=== PATIENT | female | born 1990 | race American Indian/Alaskan Native ===

== ENCOUNTER 2019-09-30 05:38 | Inpatient (IN) | payer OTHER ==
[2019-09-30] MEDS ORDERED: LIDOCAINE (2%) 20 MG/1 ML VIAL 20 ML MDV INFILTRATI ONE (06:46)
[2019-09-30] MEDS ORDERED: fentaNYL 100 MCG/2 ML INJ IV PRN (06:46)
[2019-09-30] MEDS ORDERED: MINERAL OIL 30 ML ORAL LIQD PO PRN (06:46)
[2019-09-30] MEDS ORDERED: ePHEDrine SULFATE 50 MG/1 ML INJ IV PRN ×2 (06:46→09:27)
[2019-09-30] MEDS ORDERED: TERBUTALINE 1 MG/1 ML INJ SUB-Q PRN (06:46)
[2019-09-30] MEDS ORDERED: PROMETHAZINE 25 MG TAB PO PRN ×2 (06:46→11:35)
[2019-09-30] MEDS ORDERED: TERBUTALINE 1 MG/1 ML INJ IVP PRN (06:46)
[2019-09-30] MEDS ORDERED: ONDANSETRON 4 MG/2 ML INJ IV PRN ×2 (06:46→11:35)
[2019-09-30 06:50] LABS: Basophils % (Auto) 0.1 % (0.0-1.8); Eosinophils % (Auto) 0.1 % (0.0-4.3); Hemoglobin 13.8 gm/dl (10.1-14.3); Lymphocytes # (Auto) 1.5 K/mm3 (1.2-5.4); Lymphocytes % (Auto) 17.3 % (13.4-35.0); Mean Corpuscular HGB Conc 35 % (30-34); Mean Corpuscular Volume 82 fl (79-97); Monocytes # (Auto) 0.5 K/mm3 (0.0-0.8); Monocytes % (Auto) 6.1 % (0.0-7.3); Platelet Count 242 K/mm3 (140-440); Red Blood Count 4.74 M/mm3 (3.65-5.03); Red Cell Distribution Width 14.6 % (13.2-15.2)
--- NOTE | 2019-09-30 06:59 | History and Physical Report ---
History of Present Illness Date of examination: 09/30/19 (Having contractions that have been getting stronger.) Date of admission: 09/30/2019 Chief complaint: Contractions that have been getting stronger. History of present illness: EDC Calculations LMP: 10/13/2019 EDC Confirmation: 10/13/2019 Gestational Age: 19 6/7 weeks Past History : 7 Term Births: 4 Premature Births: 0 Living Children: 4 Para: 4 Mult. Births: 0 Prev : 0 Aborta: 2 Elect. Ab: 2 Spont. Ab: 0 Ectopics: 0 # 1 Delivery date: 02/23/2008 Weeks Gestation: 40 labor: no Delivery type: Hours of labor: 12 Anesthesia type: epidural Delivery location: [place] Sex: Male weight: 6-6 Name: Elia # 2 Delivery date: 06/04/2009 Weeks Gestation: 39 labor: no Delivery type: Hours of labor: 9 Anesthesia type: epidural Delivery location: [place] Infant Sex: Male weight: 6-13 Name: Galilea # 3 Delivery date: 2009 Delivery type: EAB # 4 Delivery date: 2009 Delivery type: EAB Comments: Medication # 5 Delivery date: 10/04/2010 Weeks Gestation: 40 labor: no Delivery type: Anesthesia type: epidural [place]: [place] Sex: Male weight: 6-? Name: Elver # 6 Delivery date: 09/22/2015 Weeks Gestation: 40 Delivery type: Hours of labor: 7 Anesthesia type: epidural Delivery location: [facility] Sex: Male weight: 6-8 Name: [place] Past Medical History: Negative Past Medical History Past Surgical History: umbilical hernia Family History Summary: Other family member - Has No Family History of Colon Cancer - Entered On: 05/25/2019 Other family member - Has Family History of Ovarian Cancer - Entered On: 05/25/20 19 Other family member - Has Family History of Hypertension - Entered On: 05/25/2019 Other family member - Has Family History of Diabetes - Entered On: 05/25/2019 Other family member - Has Family History of CVA or Stroke - Entered On: 05/25/2019 Other family member - Has Family History of Coronary Heart Disease - Entered On: 05/25/2019 Other family member - Has Family History Breast Cancer - Entered On: 05/25/2019 Social History: Marital Status: Single Children: 4 Occupation: Unemployed Risk Factors: Smoked Tobacco Use: Current every day smoker Cigarettes: Yes -- 1/2 pack(s) per day, Year started: 2009 Drug use: yes Substance: marijuana HIV high-risk behavior: low risk Alcohol use: yes Drinks per day: social Past Medical History 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 of genital herpes: no Genetic History Congenital Heart Defect: Mom: no Dad: no Larissa Disease: Mom: no Dad: no Thalassemia Mom: no Dad: no Neural Tube Defect Mom: no Dad: no Down's Syndrome Mom: no Dad: no Ephraim-Sachs Mom: no Dad: no Sickle Cell Disease/Trait Mom: no Dad: no Hemophilia Mom: no Dad: no Muscular Dystrophy Mom: no Dad: no Cystic Fibrosis Mom: no Dad: no Caitlyn Chorea Mom: no Dad: no Mental Retardation Mom: no Dad: no Fragile X Mom: no Dad: no Other Genetic/Chromosomal Disorder Mom: no Dad: no Child w/other defect Mom: no Dad: no Active Medications (reviewed today): None Current Allergies (reviewed today): No known allergies PUI?: No Past History Past Surgical History: other (Umbilical hernia repair) 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 Family/Genetic History: none Social history: lives with family, other (+MJ on UDS in office.) - Obstetrical History Expected Date of Delivery: 10/13/19 Actual Gestation: 38 Week(s) 1 Day(s) : 7 Para: 4 Hx # Term Pregnancies: 4 Number of Pregnancies: 0 Spontaneous Abortions: 0 Induced : 2 Number of Living Children: 4 Medications and Allergies Allergies Allergy/AdvReac Type Severity Reaction Status Date / Time No Known Allergies Allergy Verified 09/30/19 06:53 Active Meds: Active Medications Ephedrine Sulfate (Ephedrine Sulfate) 10 mg IV Q2M PRN PRN Reason: Hypotension Fentanyl (Sublimaze) 100 mcg IV Q2H PRN PRN Reason: Labor Pain Oxytocin/Sodium Chloride (Pitocin/Ns 20 Unit/1000ml Drip) 20 units in 1,000 mls @ 125 mls/hr IV DIRECT STEFANIE Oxytocin/Sodium Chloride (Pitocin/Ns 30 Unit/500ml) 30 units in 500 mls @ 4 mls/hr IV TITR STEFANIE; Protocol Lactated Ringer's (Lactated Ringers) 1,000 mls @ 125 mls/hr IV DIRECT STEFANIE Mineral Oil (Mineral Oil) 30 ml PO QHS PRN PRN Reason: Constipation Ondansetron HCl (Zofran) 4 mg IV Q8H PRN PRN Reason: Nausea And Vomiting Promethazine HCl (Phenergan) 25 mg PO Q6H PRN PRN Reason: Nausea And Vomiting Terbutaline Sulfate (Brethine) 0.25 mg SUB-Q ONCE PRN PRN Reason: Hyperstimulation/Hypertonicity Terbutaline Sulfate (Brethine) 0.25 mg IVP ONCE PRN PRN Reason: Hyperstimulation/Hypertonicity Review of Systems All systems: negative - Vital Signs Vital signs: Vital Signs Temp Pulse Resp BP 97.5 F L 70 21 110/63 09/30/19 05:43 09/30/19 05:43 09/30/19 05:43 09/30/19 05:43 Temp Pulse Resp BP Pulse Ox 97.5 F L 70 21 110/63 09/30/19 05:43 09/30/19 05:43 09/30/19 05:43 09/30/19 05:43 - Physical Exam Breasts: Positive: deferred Cardiovascular: Regular rate, Normal S1, Normal S2 Lungs: Positive: Normal air movement Abdomen: Positive: normal appearance, soft, normal bowel sounds. Negative: distention, tenderness Genitourinary (Female): Positive: normal external genitalia, normal perenium Vulva: both: normal Vagina: Positive: normal moisture. Negative: discharge Cervix: Negative: lesion, discharge Uterus: Positive: normal size, normal contour Adnexa: both: normal Anus/Rectum: Positive: normal perianal skin, heme negative. Negative: rectal mass, hemorrhoids Extremities: Deep Tendon Reflex Grade: Normal +2 - Obstetrical FHR: auscultation normal, category 1 Uterine Contraction Monitor Mode: External Cervical Dilatation: 4 (Per triage nurse) Cervical Effacement Percentage: 100 station: BBOW Uterine Contraction Pattern: Regular Uterine Tone Measurement Phase: Resting Uterine Contraction Intensity: Moderate Results Result Diagrams: 09/30/19 06:00 Abnormal lab results 09/30/19 Range/Units 06:00 MCHC 35 H (30-34) % Seg Neutrophils % 76.4 H (40.0-70.0) % All other labs normal. GBS UNKNOWN + MJ in office labs drawn on admission Assessment and Plan A: 29 y.o. @ 38+ wks, limited PNC admission for labor. Cervical exam /BBOW. P: Admit to L&D. Draw labs. Pitocin per protocol. Anticipate . - Patient Problems (1) 38 to 41 weeks gestation of Current Visit: Yes Status: Acute Plan to address problem: Monitor maternal and status during labor. (2) Insufficient care Current Visit: Yes Status: Acute Qualifiers: Trimester: unspecified trimester Qualified Code(s): O09.30 - Supervision of with insufficient care, unspecified trimester Plan to address problem: Order case management to speak with patient after delivery
[2019-09-30] MEDS ORDERED: OXYTOCIN DRIP 30 UNITS/500 ML BAG IV SCH (07:00)
[2019-09-30] MEDS ORDERED: OXYTOCIN 20 UNIT/1000ML DRIP 20 UNITS/1,000 ML BAG IV SCH ×2 (07:00→12:00)
[2019-09-30 07:16] LABS: Hepatitis C Virus Antibody Non-Reactive (NonReactive)
[2019-09-30] MEDS: LACTATED RINGERS 1,000 ML IV SCH ×2 (07:41→08:24)
--- NOTE | 2019-09-30 07:51 | Ultrasound Report ---
ULTRASOUND OBSTETRIC LIMITED INDICATION / CLINICAL INFORMATION: No care. Clinical Gestational Age (GA): 38.1 weeks.days COMPARISON: None available. FINDINGS: HEART RATE (beats per minute): 127 AMNIOTIC FLUID INDEX (cm) = subjectively within normal limits. (normal = 7-24 cm) PRESENTATION: Cephalic. ADDITIONAL FINDINGS: Placenta is anterior and free of the os. IMPRESSION: 1. No acute abnormality. Signer Name: Julian Jay MD Signed: 09/30/2019 7:47 AM Workstation Name: [id number]
[2019-09-30] MEDS ORDERED: AMPICILLIN/NS 2 GM/100 ML 2 GM/100 ML BAG IV ONE ×2 (08:02→08:09)
--- NOTE | 2019-09-30 08:49 | Progress Note ---
Assessment and Plan - Patient Problems (1) 38 to 41 weeks gestation of Current Visit: Yes Status: Acute (2) Insufficient care Current Visit: Yes Status: Acute Qualifiers: Trimester: unspecified trimester Qualified Code(s): O09.30 - Supervision of with insufficient care, unspecified trimester Subjective - Subjective Date of service: 09/30/19 Interval history: EDC Calculations LMP: 10/13/2019 EDC Confirmation: 10/13/2019 Gestational Age: 19 6/7 weeks Past History : 7 Term Births: 4 Premature Births: 0 Living Children: 4 Para: 4 Mult. Births: 0 Prev : 0 Aborta: 2 Elect. Ab: 2 Spont. Ab: 0 Ectopics: 0 # 1 Delivery date: 02/23/2008 Weeks Gestation: 40 labor: no Delivery type: Hours of labor: 12 Anesthesia type: epidural Delivery location: [place] Infant Sex: Male weight: 6-6 Name: Elia # 2 Delivery date: 06/04/2009 Weeks Gestation: 39 labor: no Delivery type: Hours of labor: 9 Anesthesia type: epidural [place]: [place] Sex: Male weight: 6-13 Name: Galilea # 3 Delivery date: 2009 Delivery type: EAB # 4 Delivery date: 2009 Delivery type: EAB Comments: Medication # 5 Delivery date: 10/04/2010 Weeks Gestation: 40 labor: no Delivery type: Anesthesia type: epidural Delivery location: [place] Infant Sex: Male weight: 6-? Name: Elver # 6 Delivery date: 09/22/2015 Weeks Gestation: 40 Delivery type: Hours of labor: 7 Anesthesia type: epidural Delivery location: [facility] Sex: Male weight: 6-8 Name: [place] Past Medical History: Negative Past Medical History Past Surgical History: umbilical hernia Family History Summary: Other family member - Has No Family History of Colon Cancer - Entered On: 05/25/2019 Other family member - Has Family History of Ovarian Cancer - Entered On: 05/25/2019 Other family member - Has Family History of Hypertension - Entered On: 05/25/2019 Other family member - Has Family History of Diabetes - Entered On: 05/25/2019 Other family member - Has Family History of CVA or Stroke - Entered On: 05/25/2019 Other family member - Has Family History of Coronary Heart Disease - Entered On: 05/25/2019 Other family member - Has Family History Breast Cancer - Entered On: 05/25/2019 Social History: Marital Status: Single Children: 4 Occupation: Unemployed Risk Factors: Smoked Tobacco Use: Current every day smoker Cigarettes: Yes -- 1/2 pack(s) per day, Year started: 2009 Drug use: yes Substance: marijuana HIV high-risk behavior: low risk Alcohol use: yes Drinks per day: social Past Medical History 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 of genital herpes: no Genetic History Congenital Heart Defect: Mom: no Dad: no Larissa Disease: Mom: no Dad: no Thalassemia Mom: no Dad: no Neural Tube Defect Mom: no Dad: no Down's Syndrome Mom: no Dad: no Ephraim-Sachs Mom: no Dad: no Sickle Cell Disease/Trait Mom: no Dad: no Hemophilia Mom: no Dad: no Muscular Dystrophy Mom: no Dad: no Cystic Fibrosis Mom: no Dad: no Caitlyn Chorea Mom: no Dad: no Mental Retardation Mom: no Dad: no Fragile X Mom: no Dad: no Other Genetic/Chromosomal Disorder Mom: no Dad: no Child w/other defect Mom: no Dad: no Active Medications (reviewed today): None Current Allergies (reviewed today): No known allergies Objective - Vital Signs Latest vital signs: Vital Signs Temp Pulse Resp BP BP 09/30/19 07:40 55 L 104/63 09/30/19 05:43 97.5 F L 70 21 110/63 Intake and Output 09/29/19 09/30/19 09/30/19 22:59 06:59 14:59 Intake Total 1000 Balance 1000 Intake: IV 1000 Lactated Ringers 1,000 ml 1000 @ 125 mls/hr IV DIRECT STEFANIE Rx#:[id number] Other: Weight 164 lb - Labs Labs: Abnormal lab results 09/30/19 Range/Units 06:00 MCHC 35 H (30-34) % Seg Neutrophils % 76.4 H (40.0-70.0) %
--- NOTE | 2019-09-30 08:53 | Progress Note ---
Assessment and Plan A: 29 y.o. @ 38.1 wks, active labor. Insufficient care. Cervical exam 5/100/-1. P: IV bolus completed, awaiting anesthesia team for epidural placement. Anticipate . - Patient Problems (1) 38 to 41 weeks gestation of Current Visit: Yes Status: Acute (2) Insufficient care Current Visit: Yes Status: Acute Qualifiers: Trimester: unspecified trimester Qualified Code(s): O09.30 - Supervision of with insufficient care, unspecified trimester Subjective - Subjective Date of service: 09/30/19 (Pt requesting epidural. ) Principal diagnosis: 38.1 wks IUP active labor Patient reports: contractions Objective - Vital Signs Vital Signs: Vital Signs - 12hr 09/30/19 09/30/19 05:43 07:40 Temperature 97.5 F L Pulse Rate 70 55 L Respiratory 21 Rate Blood Pressure 104/63 Blood Pressure 110/63 [Right] - Exam Breasts: deferred Abdomen: Present: normal appearance, soft. Absent: distention, tenderness Uterus: Present: normal FHR: category 1 Uterine Contraction Monitor Mode: External Cervical Dilatation: 5 Cervical Effacement Percentage: 100 station: -1 Uterine Contraction Pattern: Regular Uterine Tone Measurement Phase: Resting Uterine Contraction Intensity: Moderate Extremities: normal Deep Tendon Reflex Grade: Normal +2 - Labs Labs: Abnormal Labs 09/30/19 06:00 MCHC 35 H Seg Neutrophils % 76.4 H Laboratory Results - last 24 hr 09/30/19 09/30/19 09/30/19 06:00 06:00 06:00 WBC 8.9 RBC 4.74 Hgb 13.8 Hct 39.0 MCV 82 MCH 29 MCHC 35 H RDW 14.6 Plt Count 242 Lymph % (Auto) 17.3 [place] % (Auto) 6.1 Eos % (Auto) 0.1 Baso % (Auto) 0.1 Lymph # 1.5 [place] # 0.5 Eos # 0.0 Baso # 0.0 Seg Neutrophils % 76.4 H Seg Neutrophils # 6.8 Syphilis IgG Antibody Non-reactive Hep Bs Antigen Non-reactive Hepatitis C Antibody Non-reactive HIV 1&2 Antibody Rapid Non react HIV P24 Antigen Non react Rubella IgG Antibody Immune Blood Type 09/30/19 06:00 WBC RBC Hgb Hct MCV MCH MCHC RDW Plt Count Lymph % (Auto) [place] % (Auto) Eos % (Auto) Baso % (Auto) Lymph # [place] # Eos # Baso # Seg Neutrophils % Seg Neutrophils # Syphilis IgG Antibody Hep Bs Antigen Hepatitis C Antibody HIV 1&2 Antibody Rapid HIV P24 Antigen Rubella IgG Antibody Blood Type AB POSITIVE
[2019-09-30] MEDS ORDERED: DEXMEDETOMIDINE 200 MCG/2 ML VIAL IV ONE (09:05)
[2019-09-30] MEDS ORDERED: NALOXONE 2 MG/2 ML INJ IV PRN (09:27)
--- NOTE | 2019-09-30 09:31 | Anesthesia Consultation ---
Anesthesia Consult and Med Hx Date of service: 09/30/19 - Airway Anesthetic Teeth Evaluation: Good ROM Head & Neck: Adequate Mental/Hyoid Distance: Adequate Mallampati Class: Class II Intubation Access Assessment: Good - Pulmonary Exam CTA: Yes - Cardiac Exam Cardiac Exam: RRR - Pre-Operative Health Status ASA Pre-Surgery Classification: ASA2 Proposed Anesthetic Plan: Epidural - Pulmonary Hx Smoking: No Hx Asthma: No Hx Respiratory Symptoms: No SOB: No COPD: No Home Oxygen Therapy: No Hx Pneumonia: No Hx Sleep Apnea: No - Cardiovascular System Hx Hypertension: No Hx Coronary Artery Disease: No Hx Heart Attack/AMI: No Hx Angina: No Hx Percutaneous Transluminal Coronary Angioplasty (PTCA): No Hx Cardia Arrhythmia: No Hx Pacemaker: No Hx Internal Defibrillator: No Hx Valvular Heart Disease: No Hx Heart Murmur: No Hx Peripheral Vascular Disease: No - Central Nervous System Hx Neuromuscular Disorder: No Hx Seizures: No CVA: No Hx Back Pain: No Hx Psychiatric Problems: No - Gastrointestinal Hx Ulcer: No Hx Gastroesophageal Reflux Disease: Yes - Endocrine Hx Renal Disease: No Hx End Stage Renal Disease: No Hx Cirrhosis: No Hx Liver Disease: No Hx Insulin Dependent Diabetes: No Hx Non-Insulin Dependent Diabetes: No Hx Thyroid Disease: No Hx Hypothyroidism: No Hx Hyperthyroidism: No - Hematic Hx Anemia: No Hx Sickle Cell Disease: No - Other Systems Hx Alcohol Use: Yes (occasional) Hx Substance Use: No Hx Cancer: No Hx Obesity: No
--- NOTE | 2019-09-30 09:40 | Progress Note ---
Labor Epidural - Labor Epidural Start Time: 09:04 Stop Time: 09:15 Performed by:: KALYANI DOVE Procedure: Combined Spinal Epidural Patient is requesting combined spinal epidural for labor and pain. H&P, labs were reviewed. All questions and concerns were answered. Informed consent was obtained. Timeout performed. Patient in sitting position on side of bed. Sterile prep and drape was performed. [3] mL 1% lidocaine skin wheal at L [3]-L [4]. 18-gauge Touhy epidural needle advanced to [id number] using air technique, [5]. 27-gauge spinal needle advanced [clear positive free-flowing] CSF. spinal dose of [Precedex 10 mcg]. Epidural catheter advanced to [10] cm. [Negative] Aspiration, [negative] test dose. Sterile dressing applied. Patient tolerated procedure well.
[2019-09-30] MEDS ORDERED: fentaNYL-BUPIV 2 MCG/ML-0.125% 200 MCG/100 ML BAG EPIDURAL SCH (10:00)
--- NOTE | 2019-09-30 10:00 | Progress Note ---
Assessment and Plan A: 29 y.o. @ 38.1 wks, insufficient care, active labor. AROM @ 0920 clear fluid, 7/100/0. P: Continue to monitor maternal and status. Anticipate . - Patient Problems (1) 38 to 41 weeks gestation of Current Visit: Yes Status: Acute (2) Insufficient care Current Visit: Yes Status: Acute Qualifiers: Trimester: unspecified trimester Qualified Code(s): O09.30 - Supervision of with insufficient care, unspecified trimester Subjective - Subjective Date of service: 09/30/19 (AROM clear fluid) Principal diagnosis: 38.1 wks IUP active labor Patient reports: contractions Objective - Vital Signs Vital Signs: Vital Signs - 12hr 09/30/19 09/30/19 09/30/19 05:43 07:40 08:54 Temperature 97.5 F L Pulse Rate 70 55 L 71 Respiratory 21 Rate Blood Pressure 104/63 103/64 Blood Pressure 110/63 [Right] O2 Sat by Pulse 98 Oximetry 09/30/19 09/30/19 09/30/19 08:56 08:59 09:00 Temperature Pulse Rate 67 60 54 L Respiratory Rate Blood Pressure 111/59 Blood Pressure [Right] O2 Sat by Pulse 91 99 Oximetry 09/30/19 09/30/19 09/30/19 09:04 09:07 09:12 Temperature Pulse Rate 81 56 L 60 Respiratory Rate Blood Pressure 107/60 Blood Pressure [Right] O2 Sat by Pulse 100 75 L 99 Oximetry 09/30/19 09/30/19 09/30/19 09:14 09:17 09:18 Temperature Pulse Rate 66 57 L 54 L Respiratory Rate Blood Pressure 112/58 91/53 Blood Pressure [Right] O2 Sat by Pulse 98 Oximetry 09/30/19 09/30/19 09/30/19 09:21 09:22 09:23 Temperature Pulse Rate 82 80 70 Respiratory Rate Blood Pressure 83/65 90/54 Blood Pressure [Right] O2 Sat by Pulse 98 Oximetry 09/30/19 09/30/19 09/30/19 09:26 09:27 09:29 Temperature Pulse Rate 73 78 67 Respiratory Rate Blood Pressure 90/54 91/55 Blood Pressure [Right] O2 Sat by Pulse 98 Oximetry 09/30/19 09/30/19 09/30/19 09:32 09:35 09:37 Temperature Pulse Rate 71 76 72 Respiratory Rate Blood Pressure 96/54 94/55 Blood Pressure [Right] O2 Sat by Pulse 99 99 Oximetry 09/30/19 09/30/19 09/30/19 09:38 09:41 09:42 Temperature Pulse Rate 80 70 67 Respiratory Rate Blood Pressure 88/54 96/51 Blood Pressure [Right] O2 Sat by Pulse 99 Oximetry 09/30/19 09/30/19 09/30/19 09:47 09:52 09:54 Temperature Pulse Rate 71 72 72 Respiratory Rate Blood Pressure 94/53 Blood Pressure [Right] O2 Sat by Pulse 99 100 Oximetry - Exam Breasts: deferred Cardiovascular: Regular rate, Normal S1, Normal S2 Lungs: Normal air movement Abdomen: Present: normal appearance, soft Vulva: both: normal Uterus: Present: normal FHR: category 1 Cervical Dilatation: 7 (AROM clear fluid @ 0920am) Cervical Effacement Percentage: 100 station: 0 Uterine Contraction Pattern: Regular Uterine Tone Measurement Phase: Resting Uterine Contraction Intensity: Moderate Extremities: normal Deep Tendon Reflex Grade: Normal +2 - Labs Labs: Abnormal Labs 09/30/19 06:00 MCHC 35 H Seg Neutrophils % 76.4 H Laboratory Results - last 24 hr 09/30/19 09/30/19 09/30/19 06:00 06:00 06:00 WBC 8.9 RBC 4.74 Hgb 13.8 Hct 39.0 MCV 82 MCH 29 MCHC 35 H RDW 14.6 Plt Count 242 Lymph % (Auto) 17.3 [place] % (Auto) 6.1 Eos % (Auto) 0.1 Baso % (Auto) 0.1 Lymph # 1.5 [place] # 0.5 Eos # 0.0 Baso # 0.0 Seg Neutrophils % 76.4 H Seg Neutrophils # 6.8 Syphilis IgG Antibody Non-reactive Hep Bs Antigen Non-reactive Hepatitis C Antibody Non-reactive HIV 1&2 Antibody Rapid Non react HIV P24 Antigen Non react Rubella IgG Antibody Immune Blood Type 09/30/19 06:00 WBC RBC Hgb Hct MCV MCH MCHC RDW Plt Count Lymph % (Auto) [place] % (Auto) Eos % (Auto) Baso % (Auto) Lymph # [place] # Eos # Baso # Seg Neutrophils % Seg Neutrophils # Syphilis IgG Antibody Hep Bs Antigen Hepatitis C Antibody HIV 1&2 Antibody Rapid HIV P24 Antigen Rubella IgG Antibody Blood Type AB POSITIVE
[2019-09-30] MEDS ORDERED: PROMETHAZINE 25 MG RECT SUPP PR PRN (11:35)
[2019-09-30] MEDS ORDERED: WITCH HAZEL/ GLYCERIN PAD TP PRN (11:35)
[2019-09-30] MEDS ORDERED: LANOLIN/ZINC/DIMETHICONE (LANSINOH) 7 GM TP PRN (11:35)
[2019-09-30] MEDS ORDERED: MAGNESIUM HYDROXIDE (MOM) ORAL LIQD UDC PO PRN (11:35)
[2019-09-30] MEDS ORDERED: ACETAMINOPHEN 325 MG TAB PO PRN (11:35)
[2019-09-30] MEDS ORDERED: BENZOCAINE/MENTHOL 20/0.5% TOP SPRAY 56 GM TP PRN (11:40)
--- NOTE | 2019-09-30 11:52 | Procedure Note ---
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 to mothers chest for skin to skin. Cord cut and clamped after cessation of pulse. Infant handed to [facility] team for evaluation. Placenta delivered spontaneous, intact, 3 vessels noted. Perineum and vagina inspected, no lacerations noted. Fundus firm, minimal bleeding noted. Apgars 8,9. Weight 6-4. EBL 350ml. Sponge and instrument counted with java tech lead and RN X 2 and correct. Mother and infant left in stable condition with RN.
[2019-09-30] MEDS ORDERED: IBUPROFEN 600 MG TAB PO SCH (12:00)
--- NOTE | 2019-09-30 13:16 | Post Anesthesia Evaluation ---
- Post Anesthesia Evaluation Patient Participated: Yes Airway Patent: Yes Stable Respiratory Function: Yes Nausea/Vomiting: No Temp > 96.8F: Yes Pain Manageable: Yes Adequeate Hydration: Yes Anesthesia Complications: No Block Receding Appropriately: Yes Patient on Ventilator: No
[2019-09-30] MEDS: diphenhydrAMINE 25 MG CAP PO PRN (18:16)
[2019-09-30] MEDS: DOCUSATE SODIUM 100 MG CAP PO SCH (21:05)
[2019-10-01] MEDS: diphenhydrAMINE 25 MG CAP PO PRN (00:55)
[2019-10-01] MEDS: IBUPROFEN 800 MG TAB PO SCH ×3 (00:59→18:03)
--- NOTE | 2019-10-01 06:32 | Discharge Summary ---
Providers - Providers Date of Admission: 09/30/19 08:23 Date of discharge: 10/01/19 (pt very anxious to go home she is aware there maybe a 48hr hold on [place]) Attending physician: MAGALY HUTTON Primary care physician: MAGALY HUTTON Hospitalization Reason for admission: active labor Delivery: Episiotomy: none Laceration: none Incision: normal Other procedures: none complications: none Discharge diagnosis: IUP at term delivered baby: female Hospital course: uncomplicated vaginal delivery insufficient PNC Pt w/o complaint VSS FF below umb Lochia small perineum intact. H&H pending Doing well s/p vag delivery P: d/c today with instructions Depo for BC Condition at discharge: Good Disposition: DC-01 TO HOME OR SELFCARE - Discharge Diagnoses (1) Spontaneous vaginal delivery Status: Acute Comment: RTO 4w for PNC Plan - Provider Discharge Summary Activity: routine, no sex for 6 weeks, no heavy lifting 4 weeks, no strenuous exercise Diet: routine Instructions: routine Additional instructions: [] Smoking cessation referral if applicable(refer to patient education folder for contact #) [] Refer to [facility]'s [facility] Booklet Call your doctor immediately for: * Fever > 100.5 * Heavy vaginal bleeding ( >1 pad per hour) * Severe persistent headache * Shortness of breath * Reddened, hot, painful area to leg or breast * Drainage or odor from incision. * Keep incision clean and dry at all times and follow doctor's instructions regarding bathing/showering - Follow up plan Follow up: MAGALY HUTTON MD [Primary Care Provider] - 10/30/19 (Congratulations! Please call [phone] to schedule your visit in 4 weeks. Motrin/ibuprofen for cramping/pain. Call with any concerns.)
[2019-10-01] MEDS ORDERED: medroxyPROGESTERone ACETATE 150 MG/ML SYRINGE IM ONE ×2 (06:33→10:00)
[2019-10-01] MEDS ORDERED: oxyCODONE /ACETAMINOPHEN 5-325MG TAB PO PRN (06:33)
[2019-10-01 06:34] LABS: Hematocrit 31.4 % (30.3-42.9); Hemoglobin 10.8 gm/dl (10.1-14.3)
[2019-10-01] MEDS: DOCUSATE SODIUM 100 MG CAP PO SCH ×2 (09:13→21:39)
[2019-10-01] MEDS ORDERED: PRENATAL VIT27-FE FUMARATE-FOLIC ACID VIT TAB PO SCH (10:00)
[2019-10-01] MEDS ORDERED: TETANUS,DIPH,PERTUSS(ACELL) VACCINE 0.5 ML SYRINGE IM ONE (11:35)
[2019-10-02] MEDS: IBUPROFEN 800 MG TAB PO SCH (06:06)
[2019-10-02 09:46] VITALS: BP 96/58
== END 2019-10-02 08:40 | disposition home or self-care (01) | DRG 775 ==
LOC: TRG 05:38 → LD 08:23 → OB 13:28
PROVIDERS: ADMIT Obstetrics & Gynecology; ATTEND Obstetrics & Gynecology
PROC: 10E0XZZ Delivery of Products of Conception, External Approach (ICD-10-PCS; principal; 2019-09-30)
PROC: 10907ZC Drainage of Amniotic Fluid, Therapeutic from Products of Conception, Via Natural or Artificial Opening (ICD-10-PCS; 2019-09-30)
PROC: 3E0R3BZ Introduction of Anesthetic Agent into Spinal Canal, Percutaneous Approach (ICD-10-PCS; 2019-09-30)
PROC: 00HU33Z Insertion of Infusion Device into Spinal Canal, Percutaneous Approach (ICD-10-PCS; 2019-09-30)
PROC: 3E0234Z Introduction of Serum, Toxoid and Vaccine into Muscle, Percutaneous Approach (ICD-10-PCS; 2019-10-01)
DX: O69.81X0 Labor and delivery complicated by cord around neck, without compression, not applicable or unspecified (principal); Z3A.38 38 weeks gestation of pregnancy; Z37.0 Single live birth; Z23 Encounter for immunization
CPT/HCPCS: 36415; 59025; 76815; 85014; 85018; 85025; 86592; 86706; 86762; 86803; 86850; 86870; 86900; 86901; 87806; G0378; J0290; J1050; J2590; J3010; J3490; J7120